=== PATIENT | female | born 1970 | race Caucasian/White ===

== ENCOUNTER 2017-07-21 19:53 | Emergency (ER) | payer SELFPAY ==
[~2017-07-21] VITALS: Ht 172.7 cm; Wt 68.0 kg
[2017-07-21 20:01] VITALS: BP 103/64
--- NOTE | 2017-07-21 21:21 | NUR ---
CALLED BY SUNITHA MATHEW, NO RESPONSE
--- NOTE | 2017-07-21 22:04 | NUR ---
CALLED PT IN [place], NO RESPONSE
== END 2017-07-21 22:05 | disposition left against medical advice (07) ==
LOC: ER 19:55
DX: Z53.21 Procedure and treatment not carried out due to patient leaving prior to being seen by health care provider (principal)
CPT/HCPCS: A4606; Z7610

== ENCOUNTER 2018-10-27 20:26 | Emergency (ER) | payer SELFPAY ==
[~2018-10-27] VITALS: Ht 172.7 cm; Wt 72.6 kg
[2018-10-27 21:30] VITALS: BP 136/88
--- NOTE | 2018-10-27 21:30 | NUR ---
PT BIBSELF C/O RIGHT SHOULDER PAIN X2 WEEKS, PROGRESSIVELY GETTING WORSE. -TRAUMA, +LIMITED ROM. PT DENIES ANY RECENT ACTIVITY. PT STATES "GOT WORSE TWO DAYS AGO. PT AOX4. NAD NOTED. RESP EVEN AND UNLABORED. PT IN BED 9. WILL CONTINUE TO MONITOR.
--- NOTE | 2018-10-27 21:55 | NUR ---
RADIOLOGY AT BEDSIDE FOR R SHOULDER XRAY
[2018-10-27] MEDS ORDERED: ACETAMINOPHEN 325 MG TABLET PO ONE (22:30)
[2018-10-27] MEDS ORDERED: ACETAMINOPHEN ES 500 MG TABLET ONE (22:47)
== END 2018-10-27 23:51 | disposition home or self-care (01) ==
LOC: ER 20:27
DX: M25.511 Pain in right shoulder (principal); Z88.0 Allergy status to penicillin
CPT/HCPCS: 73030-TC

== ENCOUNTER 2019-06-07 14:19 | Emergency (ER) | payer MEDICAID ==
[~2019-06-07] VITALS: Ht 172.7 cm; Wt 77.6 kg
[2019-06-07 14:26] VITALS: BP 127/82
== END 2019-06-07 14:59 | disposition home or self-care (01) ==
LOC: ER 14:19
DX: M54.42 Lumbago with sciatica, left side (principal); Z88.0 Allergy status to penicillin

== ENCOUNTER 2020-12-13 13:23 | Emergency (ER) | payer SELFPAY ==
[~2020-12-13] VITALS: Ht 170.2 cm; Wt 74.8 kg
--- NOTE | 2020-12-13 13:39 | NUR ---
LEFT BREAST PAIN,CONCERNED BECAUSE SHE GOT 2ND DOSE OF COVID VACCINE IN LEFT ARM 3 DAYS AGO. RATES PAIN 5/10. WILL CONTINUE TO MONITOR THE PATIENT.
[2020-12-13 14:56] LABS: BASOPHILS # (AUTO) 0.1 /CMM (0.0-0.2); BASOPHILS % (AUTO) 0.9 % (0.0-2.0); EOSINOPHILS % (AUTO) 0.8 % (0.0-6.0); HEMATOCRIT 37 % (33-45); HEMOGLOBIN 11.9 g/dL (11.5-14.8); LYMPHOCYTES # (AUTO) 1.9 /CMM (0.8-4.8); LYMPHOCYTES % (AUTO) 29.9 % (20.0-44.0); MEAN CORPUSCULAR HGB CONC 32 g/dl (31.0-36.0); MEAN CORPUSCULAR VOLUME 85 fL (82-100); MONOCYTES # (AUTO) 0.7 /CMM (0.1-1.30); MONOCYTES % (AUTO) 10.3 % (2.0-12.0); NEUTROPHILS # (AUTO) 3.7 /CMM (1.8-8.9); NEUTROPHILS % (AUTO) 58.1 % (43.0-81.0); PLATELET COUNT (AUTO) 250 /CMM (150-450); RED BLOOD CELL COUNT(AUTO) 4.34 MIL/uL (4.0-5.2); WHITE BLOOD COUNT (AUTO) 6.4 K/uL (4.3-11.0)
[2020-12-13] MEDS ORDERED: ACETAMINOPHEN ES 500 MG TABLET ONE (14:56)
[2020-12-13] MEDS ORDERED: IBUPROFEN 600 MG TABLET ONE (14:56)
[2020-12-13] MEDS ORDERED: ACETAMINOPHEN ES 500 MG TABLET PO ONE (15:00)
[2020-12-13] MEDS ORDERED: IBUPROFEN 600 MG TABLET PO ONE (15:00)
[2020-12-13 15:10] LABS: CALCIUM, SERUM 9.3 mg/dL (8.5-10.1); CARBON DIOXIDE 31 mmol/L (21-32); CHLORIDE 107 mmol/L (98-107); CREATININE 0.7 mg/dL (0.6-1.3); GLUCOSE 87 mg/dL (74-106); POTASSIUM 4.5 mmol/L (3.5-5.1); SODIUM SERUM 141 mmol/L (136-145); UREA NITROGEN, BLOOD 9 mg/dL (7-18)
[2020-12-13 15:16] LABS: ALANINE AMINOTRANSFERASE 20 U/L (12-78); ALBUMIN 3.7 g/dL (3.4-5.0); ALKALINE PHOSPHATASE 83 U/L (46-116); ASPARTATE AMINOTRANSFERASE 17 U/L (15-37); BILIRUBIN,DIRECT 0.1 mg/dL (0.0-0.2); BILIRUBIN,TOTAL 0.2 mg/dL (0.2-1.0); TOTAL PROTEIN, SERUM 7.7 g/dL (6.4-8.2)
[2020-12-13 15:25] VITALS: BP 131/72
--- NOTE | 2020-12-13 15:25 | NUR ---
Patient does not wish to proceed with medical care recommended by Dr. Bain. Patient given information related to possible complications, up to and including , which could occur as a result of leaving the hospital at this time. Patient verbalizes understanding of risks involved due to leaving against medical advice. Patient has signed AMA form.
== END 2020-12-13 15:26 | disposition left against medical advice (07) ==
LOC: ER 13:38
DX: N64.4 Mastodynia (principal); Z88.0 Allergy status to penicillin
CPT/HCPCS: 36415; 71045; 80048; 80076; 84484; 85025; 85378; 93005 ×2; 99285; A6403